=== PATIENT | male | born 1970 | race Caucasian/White ===

== ENCOUNTER 2022-08-06 12:06 | Emergency (ER) | payer BC ==
[2022-08-06] MEDS ORDERED: NA CHLORIDE 0.9% 1,000 ML ONE (12:57)
[2022-08-06 13:18] LABS: Absolute Lymphocytes (CBC) 0.9 K/uL (0.7-4.9); Lymphocytes % 8.8 % (15.3-44.8); MCV 92.6 fL (80-100); MPV 8.2 fL (7.6-11.3); RBC Red Blood Cell Count 4.64 M/uL (4.33-5.43)
[2022-08-06 13:29] LABS: Urine Blood 2+ (Negative); Urine Glucose Negative (Negative); Urine Protein 1+ (Negative); Urine Specific Gravity 1.025 (1.005-1.030); Urine pH 5.5 (5.0-7.0)
[2022-08-06 13:41] LABS: Albumin 3.4 g/dL (3.4-5.0); Bilirubin Total 0.7 mg/dL (0.2-1.0); Potassium 3.9 mmol/L (3.5-5.1); Protein, Total 7.4 g/dL (6.4-8.2)
[2022-08-06 13:43] LABS: Urine Bacteria None Seen /HPF (<20); Urine Mucus 1+ /HPF (None Seen)
[2022-08-06 13:49] LABS: SARS-COV-2 RT PCR NEGATIVE (NEGATIVE)
--- NOTE | 2022-08-06 14:20 | RAD REPORT ---
EXAM DESCRIPTION: CTAbdomen Pelvis W Contrast - 08/06/2022 2:04 pm CLINICAL HISTORY: Abdominal pain. flank pain, fever COMPARISON: No comparisons TECHNIQUE: Biphasic CT imaging of the abdomen and pelvis was performed with 100 ml non-ionic IV cont rast. All CT scans are performed using dose optimization technique as appropriate and may include automated exposure control or mA/KV adjustment according to patient size. FINDINGS: The lung bases are clear. The liver demonstrates mild fatty infiltration. The spleen, pancreas, adrenal glands and kidneys are within normal limits. No bowel obstruction, free air, free fluid or abscess. The appendix is normal. No evidence of signi ficant lymphadenopathy. No suspicious bony findings. IMPRESSION: No acute intra-abdominal or pelvic finding. Fatty liver.
[2022-08-06 14:43] LABS: Blood Morphology Comment NOT SEEN (NOT SEEN); Platelet Estimate ADEQ; White Blood Cell Scan OK (OK)
[2022-08-06] MEDS ORDERED: CEFTRIAXONE 1000 MG/VIAL ONE (15:35)
[2022-08-06] MEDS ORDERED: NA CHLORIDE 0.9% 50 ML IV ONE (15:35)
--- NOTE | 2022-08-06 15:55 | EDPHYS ---
Physician Documentation [facility] Name: Hans Thomas Jr Age: 52 yrs Sex: Male : 1970 Arrival Date: 08/06/2022 Time: 12:22 Bed 19 Private MD: ED Physician Ben Kim HPI: 08/06 12:39 This 52 yrs old Male presents to ER via Ambulatory with complaints of Flu Symptoms, jmm Urinary Problem. 17:50 Onset: The symptoms/episode began/occurred gradually. Modifying factors: The symptoms jmm are alleviated by nothing, the symptoms are aggravated by nothing. Associated signs and symptoms: Pertinent positives: fever. This is a 52 year old male with a history of htn, hlp that presents to the ED with complaints of body aches, fever, fatigue with dysuria beginning yesterday. Denies vomiting. States having some flank pain. Denies hx of kidney stones. . Historical: - Allergies: 12:44 PENICILLINS; bb - PMHx: 12:44 Hypertensive disorder; Hypercholesterolemia; bb - Immunization history:: Adult Immunizations up to date. - Social history:: Smoking status: Patient denies any tobacco usage or history of. ROS: 17:50 Constitutional: Positive for body aches, fever. jmm 17:50 Respiratory: Negative for cough, shortness of breath. 17:50 : Positive for urinary symptoms. 17:50 All other systems are negative. Exam: 17:50 Constitutional: This is a well developed, well nourished patient who is awake, alert, jmm and in no acute distress. Head/Face: atraumatic. Eyes: EOMI, no conjunctival erythema appreciated ENT: Moist Mucus Membranes Neck: Trachea midline, Supple Chest/axilla: Normal chest wall appearance and motion. Cardiovascular: Regular rate and rhythm. No edema appreciated Respiratory: Normal respirations, no respiratory distress appreciated Abdomen/GI: Non distended Back: Normal ROM Skin: General appearance color normal MS/ Extremity: Moves all extremities, no obvious deformities appreciated, no edema noted to the lower extremities Neuro: Awake and alert Psych: Behavior is normal, Mood is normal, Patient is cooperative and pleasant Vital Signs: 12:41 BP 139 / 91; Pulse 92; Resp 18; Temp 99.8; Pulse Ox 99% ; Weight 102.51 kg; Height 5 bb ft. 11 in. (180.34 cm); Pain 0/10; 12:58 BP 159 / 91; Pulse 88; Resp 16; Pulse Ox 98% on R/A; db 14:30 BP 137 / 85; Pulse 87; Resp 16; Pulse Ox 98% on R/A; db 15:30 BP 134 / 83; Pulse 86; Resp 18; Pulse Ox 98% on R/A; db 16:15 BP 125 / 87; Pulse 83; Resp 18; Pulse Ox 98% on R/A; db 12:41 Body Mass Index 31.52 (102.51 kg, 180.34 cm) bb MDM: 12:39 Patient medically screened. [facility] 15:53 Data reviewed: vital signs, nurses notes. Consideration of Admission/Observation. I tonam considered the following discharge prescriptions or medication management in the emergency department Medications were administered in the Emergency Department. See MAR. Counseling: I had a detailed discussion with the patient and/or guardian regarding: the historical points, exam findings, and any diagnostic results supporting the discharge/admit diagnosis, lab results, radiology results, the need for outpatient follow up, to return to the emergency department if symptoms worsen or persist or if there are any questions or concerns that arise at home. Response to treatment: the patient's symptoms have mildly improved after treatment. 08/06 12:39 Order name: CBC with Diff; Complete Time: 14:50 [facility] 08/06 12:39 Order name: CMP; Complete Time: 13:42 [facility] 08/06 12:39 Order name: Lipase; Complete Time: 13:42 [facility] 08/06 12:39 Order name: Urine Microscopic Only; Complete Time: 13:45 [facility] 08/06 12:41 Order name: COVID-19/FLU A+B; Complete Time: 14:21 [facility] 08/06 12:41 Order name: Strep; Complete Time: 13:24 [facility] 08/06 12:40 Order name: CT Abd/Pelvis - IV Contrast Only; Complete Time: 14:21 [facility] 08/06 12:41 Order name: [place] Screen Profile; Complete Time: 13:40 [facility] 08/06 13:22 Order name: CBC Smear Scan; Complete Time: 14:50 [facility] 08/06 13:27 Order name: Throat Culture [facility] 08/06 13:30 Order name: Urine Dipstick-Ancillary; Complete Time: 13:30 [facility] 08/06 13:48 Order name: Urine Culture [facility] 08/06 12:39 Order name: IV Saline Lock; Complete Time: 13:03 [facility] 08/06 12:39 Order name: Labs collected and sent; Complete Time: 13:03 [facility] 08/06 12:39 Order name: Urine Dipstick-Ancillary (obtain specimen); Complete Time: 13:31 [facility] Administered Medications: 13:00 Drug: NS 0.9% 1000 ml Route: IV; Rate: 1 bolus; Site: left antecubital; db 15:45 Follow up: Response: No adverse reaction; IV Status: Completed infusion; IV Intake: db 1000ml 15:35 Drug: Rocephin (cefTRIAXone) 1 grams Route: IV; Rate: calculated rate; Site: left db antecubital; 16:07 Follow up: Response: No adverse reaction; IV Status: Completed infusion; IV Intake: 50mldb Disposition: 18:16 Co-signature as Attending Physician, Ben Kim MD I reviewed the patient's care rt provided by the Advanced Practice Provider and agree with the diagnosis and treatment plan. Disposition Summary: 08/06/22 15:54 Discharge Ordered Location: Home [facility] Condition: Stable [facility] Diagnosis - UTI/ Urinary tract infection, site not specified [facility] Followup: [facility] - With: Private Physician - When: 2 - 3 days - Reason: Recheck today's complaints, Continuance of care, Re-evaluation by your physician Discharge Instructions: - Discharge Summary Sheet [facility] - Urinary Tract Infection, Adult [facility] Forms: - Medication Reconciliation Form [facility] - Thank You Letter [facility] - Antibiotic Education [facility] - Prescription Opioid Use [facility] Prescriptions: - cefpodoxime 200 mg Oral Tablet - take 1 tablet by ORAL route every 12 hours for 10 days with food; 20 tablet; [facility] Refills: 0, Product Selection Permitted Signatures: Dispatcher [employer] [facility] Jose Alfaro PA PA [facility] Sun Peñaloza RN RN Kim Crockett RN RN Ben Valerio MD MD rt
--- NOTE | 2022-08-06 15:55 | ER ---
Nurse's Notes [facility] Name: Hans Thomas Jr Age: 52 yrs Sex: Male : 1970 Arrival Date: 08/06/2022 Time: 12:22 Bed 19 Private MD: Diagnosis: UTI/ Urinary tract infection, site not specified Presentation: 08/06 12:41 Chief complaint: Patient states: cold chills and aches hit me hard Saturday and i am bb having some urinary issues too where I just wet myself. Coronavirus screen: Vaccine status: Patient reports receiving the 2nd dose of the covid vaccine. Client denies travel out of the [place] in the last 14 days. Ebola Screen: Patient negative for fever greater than or equal to 101.5 degrees Fahrenheit, and additional compatible Ebola Virus Disease symptoms Patient denies exposure to infectious person. Patient denies travel to an Ebola-affected area in the 21 days before illness onset. Initial Sepsis Screen: Does the patient meet any 2 criteria? No. Patient's initial sepsis screen is negative. Does the patient have a suspected source of infection? No. Patient's initial sepsis screen is negative. Risk Assessment: Do you want to hurt yourself or someone else? Patient reports no desire to harm self or others. 12:41 Method Of Arrival: Ambulatory bb 12:41 Acuity: GENIA 3 bb 15:00 Onset of symptoms was August 04, 2022. db Triage Assessment: 12:44 General: Appears in no apparent distress. uncomfortable, slender, well groomed, well bb developed, Behavior is calm, cooperative, appropriate for age. Pain: Denies pain. Historical: - Allergies: 12:44 PENICILLINS; bb - PMHx: 12:44 Hypertensive disorder; Hypercholesterolemia; bb - Immunization history:: Adult Immunizations up to date. - Social history:: Smoking status: Patient denies any tobacco usage or history of. Screenin:10 [facility] ED Fall Risk Assessment (Adult) History of falling in the last 3 months, db including since admission No falls in past 3 months (0 pts) Confusion or Disorientation No (0 pts) Intoxicated or Sedated No (0 pts) Impaired Gait No (0 pts) Mobility Assist Device Used No (0 pt) Altered Elimination No (0 pt) Score/Fall Risk Level 0 - 2 = Low Risk Oriented to surroundings, Maintained a safe environment. Abuse screen: Denies threats or abuse. Denies injuries from another. Nutritional screening: No deficits noted. Tuberculosis screening: No symptoms or risk factors identified. Assessment: 13:00 Reassessment: Patient appears in no apparent distress at this time. Patient and/or db family updated on plan of care and expected duration. Pain level reassessed. Patient is alert, oriented x 3, equal unlabored respirations, skin warm/dry/pink. PATIENT STATES HAS CONGESTION AND COLD SYMPTOMS AND URINARY SYMPTOMS STARTED SATURDAY. General: Appears in no apparent distress. comfortable, Behavior is calm, cooperative. Neuro: No deficits noted. Level of Consciousness is awake, alert, obeys commands, Oriented to person, place, time, situation, Moves all extremities. Speech is normal, Facial symmetry appears normal. Cardiovascular: No deficits noted. Respiratory: No deficits noted. Airway is patent Respiratory effort is even, unlabored, Respiratory pattern is regular, symmetrical. 13:05 Reassessment: PATIENT NOTIFIED OF NEED FOR URINE. SPECIMEN CUP PROVIDED. db 13:32 : Reports burning with urination, since YESTERDAY. db 14:41 Reassessment: Patient appears in no apparent distress at this time. Patient and/or db family updated on plan of care and expected duration. Pain level reassessed. Patient is alert, oriented x 3, equal unlabored respirations, skin warm/dry/pink. PATIENT IS USING PHONE. 15:30 Reassessment: Patient appears in no apparent distress at this time. Patient and/or db family updated on plan of care and expected duration. Pain level reassessed. Patient is alert, oriented x 3, equal unlabored respirations, skin warm/dry/pink. Patient states feeling better. Patient states symptoms have improved. 16:15 Reassessment: Patient appears in no apparent distress at this time. Patient and/or db family updated on plan of care and expected duration. Pain level reassessed. Patient is alert, oriented x 3, equal unlabored respirations, skin warm/dry/pink. Vital Signs: 12:41 BP 139 / 91; Pulse 92; Resp 18; Temp 99.8; Pulse Ox 99% ; Weight 102.51 kg; Height 5 bb ft. 11 in. (180.34 cm); Pain 0/10; 12:58 BP 159 / 91; Pulse 88; Resp 16; Pulse Ox 98% on R/A; db 14:30 BP 137 / 85; Pulse 87; Resp 16; Pulse Ox 98% on R/A; db 15:30 BP 134 / 83; Pulse 86; Resp 18; Pulse Ox 98% on R/A; db 16:15 BP 125 / 87; Pulse 83; Resp 18; Pulse Ox 98% on R/A; db 12:41 Body Mass Index 31.52 (102.51 kg, 180.34 cm) ED Course: 12:22 Patient arrived in ED. mr 12:23 Jose Alfaro PA is PHCP. jmm 12:23 Ben Kim MD is Attending Physician. m 12:44 Triage completed. bb 12:44 Arm band placed on right wrist. bb 12:46 Kim Flowers, PE[place] is Primary Nurse. db 13:03 [place] Screen Profile Sent. bc6 13:03 Strep Sent. bc6 13:03 COVID-19/FLU A+B Sent. bc6 13:11 CBC with Diff Sent. bc6 13:11 CMP Sent. bc6 13:12 Lipase Sent. bc6 13:12 Initial lab(s) drawn, by mt, sent to lab. COVID swab sent to lab. Strep swab sent to 6 lab. Inserted saline lock: 20 gauge in left antecubital area, using aseptic technique. 13:13 [place] Screen Profile Sent. bc6 13:13 Strep Sent. bc6 13:13 COVID-19/FLU A+B Sent. bc6 14:06 CT Abd/Pelvis - IV Contrast Only In Process Unspecified. EDMS 14:42 Patient has correct armband on for positive identification. Bed in low position. Call db light in reach. Side rails up X 1. Client placed on continuous cardiac and pulse oximetry monitoring. NIBP monitoring applied. Warm blanket given. 16:15 No provider procedures requiring assistance completed. IV discontinued, intact, db bleeding controlled, No redness/swelling at site. Administered Medications: 13:00 Drug: NS 0.9% 1000 ml Route: IV; Rate: 1 bolus; Site: left antecubital; db 15:45 Follow up: Response: No adverse reaction; IV Status: Completed infusion; IV Intake: db 1000ml 15:35 Drug: Rocephin (cefTRIAXone) 1 grams Route: IV; Rate: calculated rate; Site: left db antecubital; 16:07 Follow up: Response: No adverse reaction; IV Status: Completed infusion; IV Intake: 50mldb Medication: 14:42 VIS not applicable for this client. db Intake: 15:45 IV: 1000ml; Total: 1000ml. db 16:07 IV: 50ml; Total: 1050ml. db Outcome: 15:54 Discharge ordered by . ani 16:15 Discharged to home ambulatory. db 16:15 Condition: stable 16:15 Discharge instructions given to patient, Instructed on discharge instructions, follow up and referral plans. Prescriptions given X 1. 16:31 Patient left the ED. db Signatures: Dispatcher [employer] EDMS Jose Alfaro PA PA jmm Rivera, Mary mr Sun Peñaloza, RN RN Kim Crockett RN RN Funmi Leonard bc6
[2022-08-06 16:36] VITALS: TEMP 99.8
[2022-08-06 16:37] VITALS: O2SAT 98
[2022-08-06 16:41] VITALS: BP 125/87
== END 2022-08-06 16:31 | disposition home or self-care (01) ==
LOC: ER 12:06
DX: N39.0 Urinary tract infection, site not specified (principal); I10 Essential (primary) hypertension; Z20.822 Contact with and (suspected) exposure to COVID-19; Z88.0 Allergy status to penicillin
CPT/HCPCS: 87070; 87088; 85025; 87086; 36415; 86308; 87081; 83690; 80053; 0240U; 74177; Q9967; J7030; 81003; 81015; 96361; 96365; 99284